=== PATIENT | female | born 1940 | race Asian ===

== ENCOUNTER 2016-11-02 06:47 | Day surgery (SDC) | payer MEDICARE, OTHER ==
[2016-11-01 17:05] VITALS: BMI 44.0
[~2016-11-02] VITALS: Ht 165.1 cm; Wt 55.7 kg
[~2016-11-02 06:47] MED LIST: ATEN100T PO; FOLIC ACID; HYDR-3498 PO; HYDR500C3 PO; LATA2.5D9 BOTH EYES; LOSA100T7 PO; OMEG100011 PO; SOD CHLORIDE 0.9% 1,000 ML IV SCH; VIT B
[2016-11-02] MEDS ORDERED: CEFAZOLIN 2 GM/50 ML (PMX) 50 ML IVPB SCH (07:00)
--- NOTE | 2016-11-02 07:52 | RADRPT ---
PROCEDURE: XR Chest. CLINICAL INDICATION: Preop TECHNIQUE: A single AP view of the chest was obtained. COMPARISON: Chest x-ray dated 01/07/2015 FINDINGS: There is a right chest Port-A-Cath with tip near the cavoatrial junction. The lungs are hyperinflated with coarsening of the interstitial markings and increased lucency of th e upper lung zones. No focal airspace opacification, pleural effusion or pneumothorax is seen. The cardiomediastinal silhouette is within normal limits for size. Calcifications are seen within the a ortic arch. The osseous structures are unremarkable. IMPRESSION: 1. No radiographic evidence of acute cardiopulmonary disease. 2. Chronic-appearing interstitial changes. No significant interval change. 3. Aortic atherosclerosis. 4. Right chest Port-A-Cath with tip near the cavoatrial junction. RPTAT: HH .Yuli Ferguson MD, Date Time Electronically viewed and signed by .Yuli Ferguson MD, on 11/02/2016 07:51 .G/
[2016-11-02 08:06] VITALS: BP 133/62; PULSE 57; RESP 18; Ht 165.1 cm; Wt 55.7 kg
[2016-11-02 08:32] LABS: BASOPHIL # 0.1 10^3/ul (0.0-0.1); BASOPHILS % 1.2 % (0.0-2.0); EOSINOPHILS # 0.3 10^3/ul (0.0-0.5); EOSINOPHILS % 3.6 % (0.0-7.0); HEMATOCRIT 34.8 % (37.0-47.0); HEMOGLOBIN 11.8 g/dl (12.0-16.0); LYMPHOCYTES # 2.3 10^3/ul (0.8-2.9); LYMPHOCYTES % 31.3 % (15.0-51.0); MEAN CORPUSCULAR HEMOGLOBIN 33.2 pg (29.0-33.0); MEAN CORPUSCULAR HGB CONC 33.9 g/dl (32.0-37.0); MEAN CORPUSCULAR VOLUME 97.9 fl (82.0-101.0); MEAN PLATELET VOLUME 6.8 fl (7.4-10.4); MONOCYTE # 0.5 10^3/ul (0.3-0.9); MONOCYTES % 7.3 % (0.0-11.0); NEUTROPHIL # 4.1 10^3/ul (1.6-7.5); NEUTROPHILS % 56.6 % (39.0-77.0); PLATELET COUNT 330 10^3/UL (140-440); RED BLOOD COUNT 3.56 10^6/ul (4.20-5.40); RED CELL DISTRIBUTION WIDTH 14.7 % (11.5-14.5); UNCORRECTED WBC 7.3 10^3/ul (4.8-10.8); WHITE BLOOD COUNT 7.3 10^3/ul (4.8-10.8)
[2016-11-02] MEDS ORDERED: VALS320T11 PO (08:33)
[2016-11-02 08:37] LABS: CONDITION 1; LH ANALYZER COMMENTS 1
[2016-11-02 08:40] LABS: INR 1.08; PT RATIO 1.1
[2016-11-02 08:45] LABS: CALCIUM 9.9 mg/dl (8.4-10.2); CREATININE 1.02 mg/dl (0.44-1.00); POTASSIUM 4.7 mmol/L (3.5-5.1)
[2016-11-02] MEDS ORDERED: MEPERIDINE 25 MG INJ IV PRN (09:00)
[2016-11-02] MEDS ORDERED: LABETALOL HCL 20MG INJ IV PRN (09:00)
[2016-11-02] MEDS ORDERED: FENTAnyl 50 MCG/ML VIAL IV PRN ×2 (09:00)
[2016-11-02] MEDS ORDERED: hydrALAzine 20 MG INJ IV PRN (09:00)
[2016-11-02] MEDS ORDERED: ONDANSETRON 4 MG INJ IV PRN (09:00)
[2016-11-02] MEDS ORDERED: HYDROmorphONE (0.2 MG/ML) 10ML SYG IV PRN ×3 (09:00)
[2016-11-02] MEDS ORDERED: LIDOCAINE 1% (MPF) 30 ML INJ ONE ×2 (09:07→10:07)
[2016-11-02] MEDS ORDERED: HEPARIN 1000 UNITS/ML 10 ML INJ ONE (09:08)
[2016-11-02] MEDS ORDERED: FENTAnyl 50 MCG/ML VIAL ONE (09:16)
[2016-11-02] MEDS ORDERED: MIDAZOLAM 1 MG/ML 2 ML INJ ONE (09:16)
[2016-11-02] MEDS ORDERED: CEFAZOLIN 1 GM INJ ONE (09:17)
[2016-11-02] MEDS ORDERED: PROPOFOL 20 ML ONE (09:17)
[2016-11-02] MEDS ORDERED: LIDOCAINE 1%/EPI 30 ML INJ ONE (09:24)
[2016-11-02 09:47] VITALS: BP 159/51; PULSE 78; RESP 14
[2016-11-02 09:52] VITALS: BP 134/56; PULSE 88; RESP 14
[2016-11-02 09:57] VITALS: BP 121/66; PULSE 70; RESP 14
[2016-11-02 10:02] VITALS: BP 127/50; PULSE 64; RESP 16
[2016-11-02 10:07] VITALS: BP 124/50; PULSE 58; RESP 16
--- NOTE | 2016-11-02 11:58 | OPR ---
DATE OF OPERATION: 11/02/2016 PREOPERATIVE DIAGNOSIS: History of breast cancer. Need for chemotherapy port removal. POSTOPERATIVE DIAGNOSIS: History of breast cancer. Need for chemotherapy port removal. OPERATION PERFORMED: Removal of chemo port, right subclavian location. ANESTHESIA: IV sedation with local. ANESTHESIOLOGIST: Dr. Maldonado SURGEON: Kenn Estes MD COFFEE SUPERVISOR: None. INDICATIONS FOR PROCEDURE: The patient is a 75-year-old female who I previously treated for a left breast cancer. She had successful treatment and requested removal of her chemotherapy port. She co nsented and was scheduled for surgery. DESCRIPTION OF PROCEDURE: The patient was brought to the operating theater and placed under IV shmuel tion. The right anterior thorax was prepped and draped in the usual sterile fashion. The area of t he chemo port was then infiltrated with 1% local anesthetic with epinephrine. The previous surgical incisional scar was reincised with a 15 blade scalpel. The subcutaneous tissue was dissected with cautery. The pseudocapsule surrounding the port was then incised. The port was gently dissected fr om the surrounding tissue and withdrawn while pressure was held in an infraclavicular location. The port appeared to be grossly intact. It was sent for pathologic evaluation to confirm that it was g rossly intact. The wound was irrigated. Minimal bleeding was controlled with cautery, and the skin was then reapproximated with 2-0 nylon sutures in vertical mattress fashion. The patient tolerated the procedure well. The estimated blood loss was 5 mL. There were no complications and the patien t was transported in stable condition to the recovery room. Dictated By: KENN LEYVA/REYNALDO Conf#: [id number] DID#: [id number]
--- NOTE | 2016-11-06 10:58 | RADRPT ---
Vent Rate: 51 bpm RR Interval: 0 msec ME Interval: 176 msec QRS Duration: 80 msec QT Interval: 470 msec QTC Interval: 433 msec P-R-T [place]: 52 - 27 - -41 degrees Sinus bradycardia T wave abnormality, consider inferolateral ischemia Abnormal ECG Electronically Signed By: Jesús Tejeda [id number]
== END 2016-11-02 12:40 | disposition home or self-care (01) ==
LOC: SDS 06:47
PROVIDERS: ATTEND Surgery Surgical Oncology
DX: Z45.2 Encounter for adjustment and management of vascular access device (principal); Z85.3 Personal history of malignant neoplasm of breast; I10 Essential (primary) hypertension
CPT/HCPCS: 36590; 71010; 80048; 85025; 85610; 85730; 93005; J0690; J2250; J3010; 88300; J1644